=== PATIENT | female | born 1995 | race Caucasian/White ===

== ENCOUNTER 2017-09-09 21:45 | Emergency (ER) | payer MEDICAID ==
[2017-09-10] MEDS ORDERED: METOCLOPRAMIDE HCL 10 MG TABLET PO ONE (00:30)
[2017-09-10 00:48] VITALS: BP 122/86
[2017-09-10 00:55] LABS: APPEARANCE,URINE SLIGHTLY-CLOUDY; BILIRUBIN,URINE NEGATIVE (NEGATIVE); COLOR,URINE YELLOW; GLUCOSE, URINE NEGATIVE (NEGATIVE); KETONES,URINE NEGATIVE (NEGATIVE); LEUKOCYTE ESTERASE,URINE SMALL (NEGATIVE); NITRITE,URINE NEGATIVE (NEGATIVE); PROTEIN,URINE NEGATIVE (NEGATIVE)
[2017-09-10] MEDS ORDERED: ONDANSETRON ODT 4 MG TAB (6 TAB/ER DISP) PO PRN (01:23)
--- NOTE | 2017-09-10 01:31 | ER Document Report ---
ED GI/ - General Mode of Arrival: Ambulatory Information source: Patient TRAVEL OUTSIDE OF THE [place] IN LAST 30 DAYS: No <DOMINGO MONTOYA - Last Filed: 09/10/17 01:43> <THIERRY CHUNG - Last Filed: 09/10/17 02:45> - General Chief Complaint: OB Problem (<20wks) Stated Complaint: VOMITING Time Seen by Provider: 09/10/17 00:21 Notes: Patient is a "6 or 7 week " 21-year-old female who presents to the emergency department today with complaints of vomiting. Patient states nausea has been a problem throughout this . Patient also mentions that a kid of hers had the flu 2 weeks ago. (DOMINGO MONTOYA) - Related Data Allergies/Adverse Reactions: No Known Allergies Allergy (Verified 09/09/17 22:57) Past Medical History - General Information source: Patient Last Menstrual Period: 07/19/18 - Social History Smoking Status: Never Smoker Cigarette use (# per day): No Chew tobacco use (# tins/day): No Frequency of alcohol use: None Drug Abuse: None Lives with: Family Family History: Reviewed & Not Pertinent Patient has suicidal ideation: No Patient has homicidal ideation: No Pulmonary Medical History: Reports: Hx Bronchitis, Hx Pneumonia Renal/ Medical History: Reports: Hx Ovarian Cysts GI Medical History: Reports: Hx Gastroesophageal Reflux Disease Psychiatric Medical History: Reports: Hx Anxiety, Hx Depression Past Surgical History: Reports: Hx Cholecystectomy, Hx Oral Surgery, Hx Tonsillectomy - Immunizations Immunizations up to date: Yes Hx Diphtheria, Pertussis, Tetanus Vaccination: Yes <DOMINGO MONTOYA - Last Filed: 09/10/17 01:43> Review of Systems - Review of Systems Constitutional: No symptoms reported EENT: No symptoms reported Cardiovascular: No symptoms reported Respiratory: No symptoms reported Gastrointestinal: See HPI, Nausea, Vomiting Genitourinary: No symptoms reported Female Genitourinary: See HPI, Musculoskeletal: No symptoms reported Skin: No symptoms reported Hematologic/Lymphatic: No symptoms reported Neurological/Psychological: No symptoms reported -: Yes All other systems reviewed and negative <DOMINGO MONTOYA - Last Filed: 09/10/17 01:43> Physical Exam <DOMINGO MONTOYA - Last Filed: 09/10/17 01:43> <THIERRY CHUNG - Last Filed: 09/10/17 02:45> - Vital signs Vitals: Temp Pulse BP Pulse Ox 98.8 F 93 122/86 H 97 09/10/17 00:13 09/10/17 00:13 09/10/17 00:13 09/10/17 00:13 - Notes Notes: Physical Exam: General: Alert, appears well. HEENT: Normocephalic. Atraumatic. PERRL. Extraocular movements intact. Oropharynx clear. Dry mucous membranes. Neck: Supple. Non-tender. Respiratory: No respiratory distress. Clear and equal breath sounds bilaterally. Cardiovascular: Regular rate and rhythm. Abdominal: Mild suprapubic tenderness with palpation. No distension. Normal Bowel Sounds. Back: Non-tender. No deformity or step off. Extremities: Moves all four extremities. Upper extremities: Normal inspection. Normal ROM. Lower extremities: Normal inspection. No edema. Normal ROM. Neurological: Normal cognition. AAOx4. Normal speech. Psychological: Normal affect. Normal Mood. Skin: Warm. Dry. Normal color. (DOMINGO MONTOYA) Course <DOMINGO MONTOYA - Last Filed: 09/10/17 01:43> <THIERRY CHUNG - Last Filed: 09/10/17 02:45> - Re-evaluation Re-evalutation: 09/10/17 02:43 Patient is a 21-year-old female who comes in with vomiting today. Patient has been nauseated throughout this . States that she was told she was and at this point she should be 6-8 weeks along. Bedside ultrasound showing an intrauterine . Patient was given Reglan and is able to keep p.o. down without difficulty. No evidence for infection or ketones on urine. Patient is instructed to follow-up with her doctor or the health department. Return if any worsening or concerning symptoms. She has been given a prescription for Reglan. Understands and agrees with plan. (THIERRY CHUNG) - Vital Signs Vital signs: Temp Pulse Resp BP Pulse Ox 98.8 F 93 122/86 H 97 09/10/17 00:13 09/10/17 00:13 09/10/17 00:13 09/10/17 00:13 - Laboratory Laboratory results interpreted by me: 09/10/17 00:40 Urine Urobilinogen 2.0 H Ur Leukocyte Esterase SMALL H Procedures - Ultrasound/Bedside Ultrasound/Bedside Ultrasound: Other - IUP with HR ~140 at bedside <THIERRY CHUNG - Last Filed: 09/10/17 02:45> Discharge <DOMINGO MONTOYA - Last Filed: 09/10/17 01:43> <THIERRY CHUNG - Last Filed: 09/10/17 02:45> - Discharge Clinical Impression: Vomiting Qualifiers: Vomiting type: unspecified Vomiting Intractability: unspecified Nausea presence : with nausea Qualified Code(s): R11.2 - Nausea with vomiting, unspecified Qualifiers: Weeks of gestation: less than 8 weeks Qualified Code(s): Z3A.01 - Less than 8 weeks gestation of Condition: Stable Disposition: HOME, SELF-CARE Instructions: ([facility]), Vomiting ([facility]) Prescriptions: Metoclopramide HCl [Reglan 10 mg Tablet] 1 tab PO TIDP PRN #25 tablet PRN Reason: Scribe Attestation: 09/10/17 02:45 I personally performed the services described in the documentation, reviewed and edited the documentation which was dictated to the scribe in my presence, and it accurately records my words and actions. (THIERRY CHUNG) Scribe Documentation - Scribe Written by Scribe:: Gena Barry, 09/10/2017 0150 acting as scribe for :: Collette <DOMINGO MONTOYA - Last Filed: 09/10/17 01:43>
== END 2017-09-10 02:13 | disposition home or self-care (01) ==
LOC: ER 21:45
DX: O21.9 Vomiting of pregnancy, unspecified (principal); Z3A.01 Less than 8 weeks gestation of pregnancy; Z90.49 Acquired absence of other specified parts of digestive tract
CPT/HCPCS: 99283; 81001; J3490

== ENCOUNTER 2017-11-22 11:28 | Emergency (ER) | payer MEDICAID ==
--- NOTE | 2017-11-22 13:32 | ER Document Report ---
ED GI/ - General Chief Complaint: Urinary Frequency Stated Complaint: VAGINAL ITCHING, ABDOMINAL PAIN Time Seen by Provider: 11/22/17 12:49 Mode of Arrival: Ambulatory Notes: 22-year-old female presents to ED for complaint of frequent urination and itching to the vaginal area 1 week. She states she is 18 weeks . She states she has some pelvic pain but she has a left ovarian cyst. She denies any bleeding at this time. TRAVEL OUTSIDE OF THE [place] IN LAST 30 DAYS: No - HPI Patient complains to provider of: Pelvic pain, Other - Burning and itching to the vaginal area Onset: Last week Timing/Duration: Gradual Quality of pain: Burning Severity at maximum: Moderate Severity in ED: Moderate Pain Level: 2 Location: Vaginal, Vulvar Vaginal bleeding (Compared to normal period): None Associated symptoms: Urinary frequency, Urinary urgency, Other - Burning and itching to the vaginal area Exacerbated by: Other - Urination Relieved by: Denies Similar symptoms previously: Yes Recently seen / treated by doctor: No - Related Data Allergies/Adverse Reactions: No Known Allergies Allergy (Verified 11/22/17 11:29) Past Medical History - General Information source: Patient - Social History Smoking Status: Never Smoker Cigarette use (# per day): No Chew tobacco use (# tins/day): No Smoking Education Provided: No Frequency of alcohol use: None Drug Abuse: None Lives with: Family Family History: CAD, Hyperlipidemia, Hypertension, Malignancy, Thyroid Disfunction. denies: Arthritis, COPD, CVA, DM Patient has suicidal ideation: No Patient has homicidal ideation: No - Past Medical History Cardiac Medical History: Reports: None Pulmonary Medical History: Reports: Hx Bronchitis, Hx Pneumonia EENT Medical History: Reports: None Neurological Medical History: Reports: None Endocrine Medical History: Reports: None Renal/ Medical History: Reports: Hx Ovarian Cysts Malignancy Medical History: Reports: None GI Medical History: Reports: Hx Gastroesophageal Reflux Disease Musculoskeltal Medical History: Reports None Skin Medical History: Reports None Psychiatric Medical History: Reports: Hx Anxiety, Hx Depression Traumatic Medical History: Reports: None Past Surgical History: Reports: Hx Adenoidectomy, Hx Cholecystectomy, Hx Myringotomy, Hx Oral Surgery - Immunizations Immunizations up to date: Yes Hx Diphtheria, Pertussis, Tetanus Vaccination: Yes Review of Systems - Review of Systems Constitutional: No symptoms reported EENT: No symptoms reported Cardiovascular: No symptoms reported Respiratory: No symptoms reported Gastrointestinal: No symptoms reported Genitourinary: Burning, Frequency, Urgency Female Genitourinary: Other Musculoskeletal: No symptoms reported Skin: No symptoms reported Hematologic/Lymphatic: No symptoms reported Neurological/Psychological: No symptoms reported -: Yes All other systems reviewed and negative Physical Exam - Vital signs Vitals: Temp Pulse Resp BP Pulse Ox 98.0 F 91 16 122/79 99 11/22/17 11:38 11/22/17 11:38 11/22/17 11:38 11/22/17 11:38 11/22/17 11:38 Interpretation: Normal - General General appearance: Appears well, Alert - HEENT Head: Normocephalic, Atraumatic Eyes: Normal Pupils: PERRL - Respiratory Respiratory status: No respiratory distress Chest status: Nontender Breath sounds: Normal Chest palpation: Normal - Cardiovascular Rhythm: Regular Heart sounds: Normal auscultation Murmur: No - Abdominal Inspection: Normal Distension: No distension Bowel sounds: Normal Tenderness: Nontender Organomegaly: No organomegaly - Genitourinary External exam: Normal Speculum exam: Vaginal discharge - Patient self swab. She did not have any pelvic pain or any reason for a pelvic exam. She had just had a pelvic done a couple weeks ago at the health department - Back Back: Normal, Nontender - Extremities General upper extremity: Normal inspection, Nontender, Normal color, Normal ROM , Normal temperature General lower extremity: Normal inspection, Nontender, Normal color, Normal ROM , Normal temperature, Normal weight bearing. No: Cindy's sign - Neurological Neuro grossly intact: Yes Cognition: Normal Orientation: AAOx4 Leona Coma Scale Eye Opening: Spontaneous Ike Coma Scale Verbal: Oriented Leona Coma Scale Motor: Obeys Commands Leona Coma Scale Total: 15 Speech: Normal Motor strength normal: LUE, RUE, LLE, RLE Sensory: Normal - Psychological Associated symptoms: Normal affect, Normal mood - Skin Skin Temperature: Warm Skin Moisture: Dry Skin Color: Normal Course - Re-evaluation Re-evalutation: 11/22/17 17:00 This 22-year-old female presented ED for what she thought was a vaginal yeast infection. When testing was completed I agreed she had a vaginal yeast infection. I did run a culture on the urine because it did show leukocytes but it did not show any bacteria. Patient was instructed to use lotv-xbm-[id number] vaginal cream for her yeast infection. She was also instructed to follow-up with the [facility] as she is 18 weeks . Patient was able to verbalize understanding of instruction and verbalized agreement with treatment plan. - Vital Signs Vital signs: Temp Pulse Resp BP Pulse Ox 97.9 F 82 16 103/66 97 11/22/17 14:06 11/22/17 14:06 11/22/17 11:38 11/22/17 14:06 11/22/17 14:06 - Laboratory Laboratory results interpreted by me: 11/22/17 12:43 Ur Leukocyte Esterase LARGE H Discharge - Discharge Clinical Impression: Yeast vaginitis Condition: Stable Disposition: HOME, SELF-CARE Instructions: [place] Phys[place] [facility] [place] Instructions: VAGINAL YEAST INFECTION: You have evidence of a yeast infection -- called "jeanie." A vaginal yeast infection often causes itching and discharge. While not dangerous, it can be very unpleasant. A yeast infection often follows the use of powerful antibiotics. It is more likely to occur in diabetics. The treatment now is usually a single pill of Diflucan, but also an antifungal cream or suppository may be used for a few days. You do not need to avoid sexual intercourse. Recurrences are common. You can make a recurrence less likely by wearing cotton underwear and avoiding tight clothing. For mild recurrences, you can try usxu-bpy-jmpoaqj creams or suppositories that are made specifically for yeast. If the symptoms do not resolve, you should follow up for re-examination. Sometimes treatment of the sexual partner is necessary if infections are recurrent. Acetaminophen Acetaminophen may be taken for pain relief or fever control. It's much safer than aspirin, offering a wider range of "safe" dosages. It is safe during . Some brand names are Tylenol, Panadol, Datril, Anacin 3, Tempra, and Liquiprin. Acetaminophen can be repeated every four hours. The following are maximum recommended dosages: WEIGHT Dose Drops Elixir Chewable( 80mg) (LBS.) drprs=droppers tsp=teaspoon 6 40 mg .4 ml (1/2) 6-11 80 mg .8 ml (full) 1/2 tsp 1 tab 12-16 120 mg 1 1/2 drprs 3/4 tsp 1 1/2 tabs 17-23 160 mg 2 drprs 1 tsp 2 tabs 24-30 240 mg 3 drprs 1 1/2 tsp 3 tabs 30-35 320 mg 2 tsp 4 tabs 36-41 360 mg 2 1/4 tsp 4 1 /2 tabs 42-47 400 mg 2 1/2 tsp 5 tabs 48-53 480 mg 3 tsp 6 tabs 54-59 520 mg 3 1/4 tsp 6 1 /2 tabs 60-64 560 mg 3 1/2 tsp 7 tabs 65-70 600 mg 3 3/4 tsp 7 1 /2 tabs 71-76 640 mg 4 tsp 8 tabs 77-82 720 mg 4 1/2 tsp 9 tabs 83-88 800 mg 5 tsp 10 tabs >89 pounds or adults 650 mg to 900 mg Acetaminophen can be repeated every four hours. Maximum daily dose not to exceed 4000 mg. These maximum recommended dosages are slightly higher than the dosages written on the product container, but these dosages are very safe and well below the toxic dosage for acetaminophen. FOLLOW-UP CARE: If you have been referred to a physician for follow-up care, call the physician s office for an appointment as you were instructed or within the next two days. If you experience worsening or a significant change in your symptoms, notify the physician immediately or return to the Emergency Department at any time for re-evaluation. Referrals: [facility] [Provider Group] - Follow up as needed
[2017-11-22 13:43] LABS: EPITHELIALS (WET MOUNT) 3+ EPITHELIALS SEEN; T.VAGINALIS (WET MOUNT) NO TRICHOMONAS SEEN; WBCS (WET MOUNT) RARE WBCS SEEN; YEAST (WET MOUNT) BUDDING YEAST SEEN
[2017-11-22 13:45] LABS: APPEARANCE,URINE CLEAR; BILIRUBIN,URINE NEGATIVE (NEGATIVE); COLOR,URINE STRAW; GLUCOSE, URINE NEGATIVE (NEGATIVE); KETONES,URINE NEGATIVE (NEGATIVE); LEUKOCYTE ESTERASE,URINE LARGE (NEGATIVE); NITRITE,URINE NEGATIVE (NEGATIVE); PROTEIN,URINE NEGATIVE (NEGATIVE); URINE SPECIFIC GRAVITY 1.005; UROBILINOGEN,URINE NEGATIVE mg/dL (<2.0)
[2017-11-22 14:07] VITALS: BP 103/66
== END 2017-11-22 14:13 | disposition home or self-care (01) ==
LOC: ER 11:28
DX: B37.3 Candidiasis of vulva and vagina (principal); R35.0 Frequency of micturition; Z90.49 Acquired absence of other specified parts of digestive tract
CPT/HCPCS: 81001; 87086; 87210; 99283

== ENCOUNTER 2018-01-31 15:07 | Outpatient (CLI) | payer MEDICAID ==
[2018-01-31 15:54] LABS: APPEARANCE,URINE CLEAR; BILIRUBIN,URINE NEGATIVE (NEGATIVE); COLOR,URINE STRAW; GLUCOSE, URINE NEGATIVE (NEGATIVE); KETONES,URINE NEGATIVE (NEGATIVE); LEUKOCYTE ESTERASE,URINE NEGATIVE (NEGATIVE); NITRITE,URINE NEGATIVE (NEGATIVE); PROTEIN,URINE NEGATIVE (NEGATIVE); URINE SPECIFIC GRAVITY 1.006; UROBILINOGEN,URINE NEGATIVE mg/dL (<2.0)
[2018-01-31 16:06] LABS: URINE AMPHETAMINES SCREEN NEGATIVE; URINE BARBITURATES SCREEN NEGATIVE; URINE BENZODIAZEPINES SCREEN NEGATIVE; URINE COCAINE SCREEN NEGATIVE; URINE MARIJUANA (THC) SCREEN NEGATIVE; URINE METHADONE SCREEN NEGATIVE; URINE PHENCYCLIDINE SCREEN NEGATIVE
--- NOTE | 2018-01-31 17:06 | RADIOLOGY REPORT (SQ) ---
EXAM DESCRIPTION: U/S OB LIMITED COMPLETED DATE/TIME: 01/31/2018 4:55 pm REASON FOR STUDY: s/p fall COMPARISON: None. TECHNIQUE: Limited transabdominal grayscale ultrasound for evaluation of specific requested obstetri lulu parameters. LIMITATIONS: None. FINDINGS: CERVICAL LENGTH: 3.7 cm. Closed. WILY: 14.8 cm. FHR: 141 beats per minute. PRESENTATION: Transverse. PLACENTA: Posterior. OTHER: No other significant findings. IMPRESSION: LIMITED OBSTETRICAL ULTRASOUND WITH MEASURED PARAMETERS DELINEATED ABOVE. Trimester of : Third trimester - 28 weeks to delivery. TECHNICAL DOCUMENTATION: JOB ID: [id number] [employer] All Rights Reserved Reading location - IP/workstation name: [email or web address]
[2018-01-31 19:55] LABS: FETAL RBC COUNT 0
[2018-01-31 19:57] LABS: KB INTERPRETATION NEGATIVE (NEGATIVE)
== END 2018-01-31 17:24 | disposition home or self-care (01) ==
LOC: LC 15:07
PROVIDERS: ATTEND Student in an Organized Health Care Education/Training Program
PROC: 4A1HXCZ Monitoring of Products of Conception, Cardiac Rate, External Approach (ICD-10-PCS; principal; 2018-01-31)
DX: O26.893 Other specified pregnancy related conditions, third trimester (principal); R10.9 Unspecified abdominal pain; W19.XXXA Unspecified fall, initial encounter; Z3A.28 28 weeks gestation of pregnancy
CPT/HCPCS: 36415; 76815; 80307; 81001; 85460; 86900; 86901

== ENCOUNTER 2020-03-11 18:41 | Emergency (ER) | payer MEDICAID ==
--- NOTE | 2020-03-11 19:54 | ER Document Report ---
ED General - General Chief Complaint: Cough Stated Complaint: COUGH,CONGESTION,SHORT OF BREATH Time Seen by Provider: 03/11/20 19:35 TRAVEL OUTSIDE OF THE [place] IN LAST 30 DAYS: No - HPI Notes: Patient is a 24-year-old female who presents to the emergency department for evaluation after 3 days of cough and intermittent shortness of breath. She states her cough is intermittently productive. It has a metallic taste to it. She denies any fevers or chills. No nausea or vomiting. No anosmia. She is eating and drinking normally. Normal bowel movements, no diarrhea. She denies any sore throat or ear pain. She denies any pain of any sort. She denies any known exposures to COVID-19 patients. She has not traveled out of the area. - Related Data Allergies/Adverse Reactions: No Known Allergies Allergy (Verified 01/31/18 15:26) Home Medications: Cymbalta, Abilify, Prilosec Past Medical History - General Information source: Patient - Social History Smoking Status: Never Smoker Frequency of alcohol use: Social Family History: CAD, Hyperlipidemia, Hypertension, Malignancy, Thyroid Disfunction. denies: Arthritis, COPD, CVA, DM Patient has homicidal ideation: No Pulmonary Medical History: Reports: Hx Bronchitis, Hx Pneumonia Renal/ Medical History: Reports: Hx Ovarian Cysts. Denies: Hx Peritoneal Dialysis GI Medical History: Reports: Hx Gastroesophageal Reflux Disease Psychiatric Medical History: Reports: Hx Anxiety, Hx Depression Past Surgical History: Reports: Hx Adenoidectomy, Hx Cholecystectomy, Hx Myringotomy, Hx Oral Surgery, Hx Tonsillectomy - Immunizations Immunizations up to date: Yes Hx Diphtheria, Pertussis, Tetanus Vaccination: Yes Review of Systems - Review of Systems Respiratory: See HPI -: Yes All other systems reviewed and negative Physical Exam - Vital signs Vitals: Temp Pulse Resp BP Pulse Ox 98.9 F 84 16 125/83 100 03/11/20 19:07 03/11/20 19:07 03/11/20 19:07 03/11/20 19:07 03/11/20 19:07 - Notes Notes: Vital signs reviewed, please refer to chart. Head is normocephalic, atraumatic. Pupils equal round, reactive to light. Oral mucosa is moist. Pharynx is without erythema or exudate. Neck is supple without meningismus. Heart is regular rate and rhythm. Lungs are clear to auscultation bilaterally. Abdomen is soft, nontender, normoactive bowel sounds throughout. Extremities without cyanosis, clubbing. Posterior calves are nontender. Peripheral pulses are equal. Skin is warm and dry. Patient is awake, alert, neurological exam is nonfocal. Course - Re-evaluation Re-evalutation: 03/11/20 19:53 Patient presents to the emergency department for evaluation of a cough and intermittent shortness of breath. She has no risk factors for pulmonary emboli. She has no personal history of cancer, no personal history of blood clots. She has no family history of blood clots to her knowledge. She is a non-smoker, has not suffered any prolonged immobilization. She is oxygenating 100% on room air. Chest x-ray and COVID-19 test are ordered. She will be treated as a PGY, as instructed on appropriate isolation given this information. Otherwise I expect her chest x-ray she will be largely unremarkable. She is to follow-up with primary care. She will be contacted if her COVID test is positive. She is to r eturn to the ED with worsening or new concerning symptoms of any sort. 03/11/20 20:15 The patient was evaluated during the global COVID-19 pandemic and that diagnosis was suspected/considered upon their initial presentation. Their evaluation, treatment, and testing was consistent with current guidelines for patients who present with complaints or symptoms that may be related to COVID-19. - Vital Signs Vital signs: Temp Pulse Resp BP Pulse Ox 98.0 F 79 16 129/82 H 99 03/11/20 21:57 03/11/20 21:57 03/11/20 21:57 03/11/20 21:57 03/11/20 21:57 - Diagnostic Test Radiology reviewed: Image reviewed, Reports reviewed Radiology results interpreted by me: 03/11/20 22:17 Chest X-Ray 03/11/20 19:51 IMPRESSION: No acute findings. No focal lung consolidation. Discharge - Discharge Clinical Impression: Cough, Person under investigation for COVID-19 Upper respiratory infection Qualifiers: URI type: unspecified viral URI Qualified Code(s): J06.9 - Acute upper respiratory infection, unspecified Condition: Stable Disposition: HOME, SELF-CARE Instructions: COVID-19 Guidance for Persons Under Investigation, Upper Respiratory Illness ([facility]) Additional Instructions: Rest. Stay well-hydrated. Consider rxqs-lmi-gwwnolt symptomatic medications to help with your cough, such as Robitussin, a cough suppressant. Follow-up with your primary care provider. You have been tested for COVID-19. Please self isolate, as should everyone else in your household, until results are known. If you develop worsening or new concerning symptoms of any sort, please return immediately to the emergency department for evaluation.
--- NOTE | 2020-03-11 20:17 | RADIOLOGY REPORT (SQ) ---
EXAM DESCRIPTION: XR CHEST 1 VIEW COMPLETED DATE/TME: 03/11/2020 19:51 CLINICAL HISTORY: 24 years, Female, cough, dyspnea Comparison: None FINDINGS: No focal lung consolidation. No pleural effusion. No pneumothorax. Cardiac and mediastinal silhouette is unremarkable. No acute osseous abnormality. Soft tissues are unremarkable. IMPRESSION: No acute findings. No focal lung consolidation.
[2020-03-11 21:59] VITALS: BP 129/82
== END 2020-03-11 21:59 | disposition home or self-care (01) ==
LOC: ER 18:41
DX: J06.9 Acute upper respiratory infection, unspecified (principal); B97.89 Other viral agents as the cause of diseases classified elsewhere; R05 Cough; R06.02 Shortness of breath; Z79.899 Other long term (current) drug therapy; Z20.828 Contact with and (suspected) exposure to other viral communicable diseases; Z87.01 Personal history of pneumonia (recurrent)
CPT/HCPCS: 99283; 87635; 71045; C9803

== ENCOUNTER 2020-05-23 19:15 | Emergency (ER) | payer MEDICAID ==
--- NOTE | 2020-05-23 20:22 | ER Document Report ---
ED Medical Screen (RME) - General Stated Complaint: LOWER ABDOMINAL PAIN Time Seen by Provider: 05/23/20 20:18 TRAVEL OUTSIDE OF THE [place] IN LAST 30 DAYS: No - HPI Notes: 05/23/20 20:21 24-year-old female to the emergency department with complaints of left-sided pelvic pain that began today. She admits to associated diarrhea. Missed a slight nausea but denies any vomiting. She states she took a test at home and she thought it was possibly faintly positive. Her last menstrual period was April 23. She states that she is very regular and she has not come on to her period today. Also reports history of ovarian cysts. I performed a brief medical screening exam on the patient determined that the patient needs further evaluation and management by main side provider. I have placed initial orders to help expedite care. - Related Data Allergies/Adverse Reactions: No Known Allergies Allergy (Verified 05/23/20 20:16) Past Medical History Pulmonary Medical History: Reports: Hx Bronchitis, Hx Pneumonia Renal/ Medical History: Reports: Hx Ovarian Cysts. Denies: Hx Peritoneal Dialysis GI Medical History: Reports: Hx Gastroesophageal Reflux Disease Psychiatric Medical History: Reports: Hx Anxiety, Hx Depression Past Surgical History: Reports: Hx Adenoidectomy, Hx Cholecystectomy, Hx Myringotomy, Hx Oral Surgery, Hx Tonsillectomy - Immunizations Immunizations up to date: Yes Hx Diphtheria, Pertussis, Tetanus Vaccination: Yes Physical Exam - Vital signs Vitals: Temp Pulse Resp BP Pulse Ox 98.8 F 101 H 16 129/88 H 96 05/23/20 19:20 05/23/20 19:20 05/23/20 19:20 05/23/20 19:20 05/23/20 19:20 Course - Vital Signs Vital signs: Temp Pulse Resp BP Pulse Ox 98.8 F 101 H 16 129/88 H 96 05/23/20 19:20 05/23/20 19:20 05/23/20 19:20 05/23/20 19:20 05/23/20 19:20
[2020-05-23 20:53] LABS: ABSOLUTE EOSINOPHILS # (AUTO) 0.1 10^3/uL (0.0-0.6); ABSOLUTE LYMPHOCYTES (AUTO) 2.1 10^3/uL (0.5-4.7); ABSOLUTE MONOCYTES (AUTO) 0.6 10^3/uL (0.1-1.4); ABSOLUTE NEUT (AUTO) 5.9 10^3/uL (1.7-8.2); BASOPHILS % (AUTO) 0.3 % (0-2); EOSINOPHILS % (AUTO) 0.6 % (0-6); HEMATOCRIT 40.1 % (36.0-47.0); LYMPHOCYTES % (AUTO) 24.2 % (13-45); MEAN CORPUSCULAR HEMOGLOBIN 29.9 pg (27.0-33.4); MEAN CORPUSCULAR VOLUME 86 fl (80-97); MONOCYTES % (AUTO) 6.5 % (3-13); PLATELET COUNT 410 10^3/uL (150-450); RED BLOOD COUNT 4.69 10^6/uL (3.72-5.28); RED CELL DISTRIBUTION WIDTH 13.5 % (11.5-14.0); SEGMENTED NEUTROPHILS % (AUTO) 68.4 % (42-78); TOTAL CELLS COUNTED % (AUTO) 100 %; WHITE BLOOD COUNT 8.6 10^3/uL (4.0-10.5)
[2020-05-23 21:09] LABS: APPEARANCE,URINE CLEAR; BILIRUBIN,URINE NEGATIVE (NEGATIVE); COLOR,URINE YELLOW; GLUCOSE, URINE NEGATIVE (NEGATIVE); KETONES,URINE NEGATIVE (NEGATIVE); PROTEIN,URINE NEGATIVE (NEGATIVE); URINE SPECIFIC GRAVITY 1.009; UROBILINOGEN,URINE NEGATIVE mg/dL (<2.0)
[2020-05-23 21:12] LABS: ALBUMIN 4.5 g/dL (3.5-5.0); ALKALINE PHOSPHATASE 142 U/L (38-126); ANION GAP 8 (5-19); ASPARTATE AMINO TRANSFERASE 23 U/L (14-36); BILIRUBIN,DIRECT 0.3 mg/dL (0.0-0.4); BILIRUBIN,TOTAL 0.6 mg/dL (0.2-1.3); BLOOD UREA NITROGEN 7 mg/dL (7-20); CALCIUM 9.6 mg/dL (8.4-10.2); CARBON DIOXIDE 26 mmol/L (22-30); CHLORIDE 104 mmol/L (98-107); GLUCOSE 75 mg/dL (75-110); POTASSIUM 4.4 mmol/L (3.6-5.0); TOTAL PROTEIN 7.3 g/dL (6.3-8.2)
--- NOTE | 2020-05-23 22:59 | ER Document Report ---
ED General - General Chief Complaint: Abdominal Pain Stated Complaint: LOWER ABDOMINAL PAIN Time Seen by Provider: 05/23/20 20:18 Mode of Arrival: Ambulatory Information source: Patient Notes: 24-year-old female comes in today with mild left pelvic pain. She reports a possible faintly positive test at home. She not been having any fevers or chills. No vaginal discharge. No dysuria. No nausea or vomiting. Has a history of ovarian cyst in the past. At the time that I am seeing the patient, she has had full laboratory work-up. She has not had any imaging. TRAVEL OUTSIDE OF THE [place] IN LAST 30 DAYS: No - Related Data Allergies/Adverse Reactions: No Known Allergies Allergy (Verified 05/23/20 20:16) Home Medications: ABILIFY. CYMBALA. PRILOSEC Past Medical History - Social History Smoking Status: Former Smoker Frequency of alcohol use: None Drug Abuse: None Family History: CAD, Hyperlipidemia, Hypertension, Malignancy, Thyroid Disfunction. denies: Arthritis, COPD, CVA, DM Pulmonary Medical History: Reports: Hx Bronchitis, Hx Pneumonia Renal/ Medical History: Reports: Hx Ovarian Cysts. Denies: Hx Peritoneal Dialysis GI Medical History: Reports: Hx Gastroesophageal Reflux Disease Psychiatric Medical History: Reports: Hx Anxiety, Hx Depression Past Surgical History: Reports: Hx Adenoidectomy, Hx Cholecystectomy, Hx Myringotomy, Hx Oral Surgery, Hx Tonsillectomy - Immunizations Immunizations up to date: Yes Hx Diphtheria, Pertussis, Tetanus Vaccination: Yes Review of Systems - Review of Systems Notes: Constitutional: No fevers. No chills. EENT: No eye redness. No eye pain. No ear pain. No sore throat. Cardiovascular: No chest pain. No palpitations. Respiratory: No cough. No shortness of breath. No respiratory distress. Gastrointestinal: Positive left pelvic pain Genitourinary: Atraumatic. No lesions. No pain. No discharge. Musculoskeletal: Atraumatic. No swelling. No deformities. Skin: No rash or lesions. Lymphatic: No swollen lymph nodes. Neurologic: No headache. No syncope. Psychiatric: No suicidal or homicidal ideation. Physical Exam - Vital signs Vitals: Temp Pulse Resp BP Pulse Ox 98.8 F 101 H 16 129/88 H 96 05/23/20 19:20 05/23/20 19:20 05/23/20 19:20 05/23/20 19:20 05/23/20 19:20 - Notes Notes: General: Well-developed, well-nourished. In no acute distress. Non-toxic appearing. Cardiac: Well-perfused. Regular rate and rhythm. No murmurs, rubs, or gallops. Pulmonary: No respiratory distress. No cyanosis. Bilateral lung fiels are clear to auscultation. Abdominal: Left pelvic tenderness to deep palpation. No guarding or rebound. Bowel sounds present all 4 quadrants HEENT: Head is atraumatic. Conjunctivae not reddened. No tearing. PERRL. EOMI. Orbits atraumatic. No periorbital swelling or erythema. Oropharynx is without erythema, swelling, or exudates. Neck: Supple. No adenopathy. No meningismus. Dermatologic: Warm with good turgor. No rash. Atraumatic. Chest: Atraumatic. No chest wall tenderness to palpation. Musculoskeletal: Moves all extremities well. No range of motion deficits. no muscular or joint tenderness. No paraspinal muscle tenderness. no midline spinal tenderness or step-off. Genitourinary: Examination deferred Neurologic: No gross neurologic deficits. Psychiatric: Normal mood. Course - Re-evaluation Re-evalutation: 05/23/20 22:57 Patient has completely normal laboratory studies including normal urine. test was negative. Offered the patient a pelvic ultrasound to see if she is possibly got an ovarian cyst. She declines waiting any further here in the emergency room for further imaging. I told her to take Motrin or Tylenol as needed for the pain that she is experiencing. She appears relieved to know that the labs are normal and that the test was negative and is comfortable with the plan of going home and treating symptomatically. We will have her follow-up with AIRPLANE PILOT SUPERVISOR as needed. - Vital Signs Vital signs: Temp Pulse Resp BP Pulse Ox 98.8 F 101 H 16 129/88 H 96 05/23/20 19:20 05/23/20 19:20 05/23/20 19:20 05/23/20 19:20 05/23/20 19:20 - Laboratory Result Diagrams: 05/23/20 20:35 05/23/20 20:35 Laboratory results interpreted by me: 05/23/20 20:35 Alkaline Phosphatase 142 H Discharge - Discharge Clinical Impression: Pelvic pain, Elevated blood pressure reading Condition: Good Disposition: HOME, SELF-CARE Instructions: Pelvic Pain ([facility]) Additional Instructions: If this pain persists or get worse you can always return to the emergency department. Recommend following up with gynecology if it persists. Forms: Elevated Blood Pressure Referrals: SHAINA GOODRICH MD [ACTIVE STAFF] - Follow up as needed
[2020-05-23 23:06] VITALS: BP 139/93
== END 2020-05-23 23:00 | disposition home or self-care (01) ==
LOC: ER 19:15
DX: R10.2 Pelvic and perineal pain (principal); R03.0 Elevated blood-pressure reading, without diagnosis of hypertension; K21.9 Gastro-esophageal reflux disease without esophagitis; F41.9 Anxiety disorder, unspecified; F32.9 Major depressive disorder, single episode, unspecified; Z79.899 Other long term (current) drug therapy; Z87.42 Personal history of other diseases of the female genital tract; Z90.49 Acquired absence of other specified parts of digestive tract; Z87.891 Personal history of nicotine dependence
CPT/HCPCS: 36415; 80053; 81001; 84703; 85025; 99282

== ENCOUNTER 2020-05-30 16:59 | Emergency (ER) | payer MEDICAID ==
--- NOTE | 2020-05-30 18:15 | ER Document Report ---
ED Medical Screen (RME) - General Chief Complaint: Lower Abdominal Pain Stated Complaint: LOW ABDOMINAL PAIN Time Seen by Provider: 05/30/20 18:08 Mode of Arrival: Ambulatory Information source: Patient Notes: 24-year-old female patient presenting to the emergency department with 1 week history of left lower quadrant abdominal/pelvic pain. Patient reports she has a Nexplanon. She reports she has had 3 home test that have a very faint positive line. She is concerned that she may be . She states she was here last week, states she had to leave prior to work-up being completed. Mild tenderness to the left lower quadrant. Patient was tachycardic on arrival, I put her on the pulse ox and her heart rate was having a wide range from the 130s down to the 90s. I am ordering an EKG for this. Patient does report a history of anxiety but denies feeling anxious now. I have greeted and performed a rapid initial assessment of this patient. A comprehensive ED assessment and evaluation of the patient, analysis of test results and completion of the medical decision making process will be conducted by additional ED providers. I have specifically instructed the patient or family members with the patient to immediately return to any nursing staff should anything change in the patient's condition or with their chief complaint. TRAVEL OUTSIDE OF THE [place] IN LAST 30 DAYS: No - Related Data Allergies/Adverse Reactions: No Known Allergies Allergy (Verified 05/23/20 20:16) Past Medical History Pulmonary Medical History: Reports: Hx Bronchitis, Hx Pneumonia Renal/ Medical History: Reports: Hx Ovarian Cysts. Denies: Hx Peritoneal Dialysis GI Medical History: Reports: Hx Gastroesophageal Reflux Disease Psychiatric Medical History: Reports: Hx Anxiety, Hx Depression Past Surgical History: Reports: Hx Adenoidectomy, Hx Cholecystectomy, Hx Myringotomy, Hx Oral Surgery, Hx Tonsillectomy - Immunizations Immunizations up to date: Yes Hx Diphtheria, Pertussis, Tetanus Vaccination: Yes Physical Exam - Vital signs Vitals: Temp Pulse Resp BP Pulse Ox 98.1 F 108 H 16 132/81 H 98 05/30/20 17:20 05/30/20 17:20 05/30/20 17:20 05/30/20 17:20 05/30/20 17:20 Course - Vital Signs Vital signs: Temp Pulse Resp BP Pulse Ox 98.1 F 108 H 16 132/81 H 98 05/30/20 17:20 05/30/20 17:20 05/30/20 17:20 05/30/20 17:20 05/30/20 17:20
[2020-05-30 18:53] LABS: ABSOLUTE EOSINOPHILS # (AUTO) 0.1 10^3/uL (0.0-0.6); ABSOLUTE LYMPHOCYTES (AUTO) 2.1 10^3/uL (0.5-4.7); ABSOLUTE MONOCYTES (AUTO) 0.8 10^3/uL (0.1-1.4); ABSOLUTE NEUT (AUTO) 6.4 10^3/uL (1.7-8.2); BASOPHILS % (AUTO) 0.3 % (0-2); EOSINOPHILS % (AUTO) 0.9 % (0-6); HEMATOCRIT 39.8 % (36.0-47.0); HEMOGLOBIN 13.7 g/dL (12.0-15.5); LYMPHOCYTES % (AUTO) 22.8 % (13-45); MEAN CORPUSCULAR HEMOGLOBIN 29.5 pg (27.0-33.4); MEAN CORPUSCULAR HGB CONC 34.3 g/dL (32.0-36.0); MEAN CORPUSCULAR VOLUME 86 fl (80-97); MONOCYTES % (AUTO) 8.3 % (3-13); PLATELET COUNT 412 10^3/uL (150-450); RED BLOOD COUNT 4.64 10^6/uL (3.72-5.28); RED CELL DISTRIBUTION WIDTH 13.5 % (11.5-14.0); SEGMENTED NEUTROPHILS % (AUTO) 67.7 % (42-78); TOTAL CELLS COUNTED % (AUTO) 100 %; WHITE BLOOD COUNT 9.4 10^3/uL (4.0-10.5)
[2020-05-30 19:11] LABS: ALBUMIN 4.5 g/dL (3.5-5.0); ALKALINE PHOSPHATASE 115 U/L (38-126); ANION GAP 10 (5-19); ASPARTATE AMINO TRANSFERASE 20 U/L (14-36); BILIRUBIN,DIRECT 0.2 mg/dL (0.0-0.4); BILIRUBIN,TOTAL 0.5 mg/dL (0.2-1.3); BLOOD UREA NITROGEN 10 mg/dL (7-20); CALCIUM 9.7 mg/dL (8.4-10.2); CARBON DIOXIDE 26 mmol/L (22-30); CHLORIDE 102 mmol/L (98-107); GLUCOSE 79 mg/dL (75-110); POTASSIUM 4.7 mmol/L (3.6-5.0); TOTAL PROTEIN 7.3 g/dL (6.3-8.2)
--- NOTE | 2020-05-30 19:56 | RADIOLOGY REPORT (SQ) ---
EXAM DESCRIPTION: U/S NON OB PEL TV W/DOPPLER IMAGES COMPLETED DATE/TIME: 05/30/2020 7:45 pm REASON FOR STUDY: L pelvic pain LMP 04/23/2020 COMPARISON: None. TECHNIQUE: Dynamic and static grayscale images acquired of the pelvis via transvaginal approach and recorded on PACS. Additional selected color Doppler and spectral images recorded. LIMITATIONS: None. FINDINGS: UTERUS: Contour normal. No mass. ENDOMETRIAL STRIPE: No focal or generalized thickening. No masses. CERVIX: 2.5 cm. No nabothian cysts. RIGHT OVARY AND DOPPLER: Normal size. No worrisome masses. Normal arterial vascular flow without evid ence for torsion. 24 mm cyst. LEFT OVARY AND DOPPLER: Normal size. No worrisome masses. Normal arterial vascular flow without evide nce for torsion. FREE FLUID: None noted. OTHER: No other significant finding. MEASUREMENTS: UTERUS: 8.7 x 5.9 x 4.8 cm. ENDOMETRIAL STRIPE: 12 mm. RIGHT OVARY: 3 x 2.8 x 2.2 cm. LEFT OVARY: 2.6 x 1.4 x 1.6 cm. IMPRESSION: Normal study. There is a 24 mm right ovarian cyst that is almost certainly benign. No additional imaging is required for this. TECHNICAL DOCUMENTATION: JOB ID: [id number] 2010 [employer]- All Rights Reserved Rev-12/24 Reading location - IP/workstation name: [email or web address]
--- NOTE | 2020-05-30 20:43 | ER Document Report ---
ED GI/ - General Chief Complaint: Abdominal Pain Stated Complaint: LOW ABDOMINAL PAIN Time Seen by Provider: 05/30/20 18:08 Mode of Arrival: Ambulatory Notes: CHIEF COMPLAINT: Left pelvic pain for 1 week HPI: 24-year-old female presenting with left pelvic pain for 1 week has been fairly constant hurts when she lays on the left side. Denies dysuria fever nausea vomiting. Denies vaginal bleeding or spotting or discharge ROS: See HPI - all other systems were reviewed and are otherwise negative Constitutional: no fever or recent illness Eyes: no drainage, no blurred vision ENT: no runny nose, no sore throat Cardiovascular: no chest pain Resp: no SOB, no cough GI: no vomiting, no diarrhea, positive pelvic pain : no dysuria, no vaginal discharge Integumentary: no rash Allergy: no hives Musculoskeletal: no extremity pain or swelling Neurological: no numbness/tingling, no weakness MEDICATIONS: I agree with the patient medications as charted by the RN. ALLERGIES: I agree with the allergies as charted by the RN. PAST MEDICAL HISTORY/PAST SURGICAL HISTORY: Reviewed and agree as charted by RN. SOCIAL HISTORY: Reviewed and agree as charted by RN. FAMILY HISTORY: No significant familial comorbid conditions directly related to patient complaint EXAM: Reviewed vital signs as charted by RN. CONSTITUTIONAL: Alert and oriented and responds appropriately to questions. Well-appearing; well-nourished HEAD: Normocephalic; atraumatic EYES: PERRL; Conjunctivae clear, sclerae non-icteric ENT: normal nose; no rhinorrhea; moist mucous membranes; pharynx without lesions noted NECK: Supple without meningismus; non-tender; no cervical lymphadenopathy, no masses CARD: RRR; no murmurs, no clicks, no rubs, no gallops; symmetric distal pulses RESP: Normal chest excursion without splinting or tachypnea; breath sounds clear and equal bilaterally; no wheezes, no rhonchi, no rales ABD/GI: Normal bowel sounds; non-distended; soft, mild tenderness left pelvis on palpation, no rebound, no guarding; no palpable organomegaly or masses : Female nurse personal service representative present. External genitalia normal. No skin lesions noted. Pelvic Exam: No active bleeding. Small amount of a thin white discharge, cervix appears normal. No CMT. No lesions or masses. Uterus normal size and non tender. Right/Left adnexa normal size and mildly tender on the left. BACK: The back appears normal and is non-tender to palpation, there is no CVA tenderness EXT: Normal ROM in all joints; non-tender to palpation; no cyanosis, no ef fusions, no edema SKIN: Normal color for age and race; warm; dry; good turgor; no acute lesions n oted NEURO: Moves all extremities equally; Motor and sensory function intact PSYCH: The patient's mood and manner are appropriate. Grooming and personal hygiene are appropriate. MDM: EKG shows a sinus tachycardia with a heart rate of 103. [place] 148. QT 352. QTc 461. Possible borderline T wave flattening in the lateral leads. No other abnormalities. Abnormal EKG interpreted by emergency department physician 24-year-old female with left pelvic pain for a week. Noted to have a 2 cm right ovarian cyst. Urine does not show evidence of infection. Low suspicion for PID. Apparently she had a variable heart rate in triage prompting the EKG ordered. She does not have chest pain or shortness of breath. TRAVEL OUTSIDE OF THE [place] IN LAST 30 DAYS: No - Related Data Allergies/Adverse Reactions: No Known Allergies Allergy (Verified 05/23/20 20:16) Home Medications: prilosec, cymbalta, abilify Past Medical History - General Information source: Patient - Social History Smoking Status: Current Every Day Smoker Frequency of alcohol use: Occasional Drug Abuse: None Family History: CAD, Hyperlipidemia, Hypertension, Malignancy, Thyroid Disfunction. denies: Arthritis, COPD, CVA, DM Pulmonary Medical History: Reports: Hx Bronchitis, Hx Pneumonia Renal/ Medical History: Reports: Hx Ovarian Cysts. Denies: Hx Peritoneal Dialysis GI Medical History: Reports: Hx Gastroesophageal Reflux Disease Psychiatric Medical History: Reports: Hx Anxiety, Hx Depression Past Surgical History: Reports: Hx Adenoidectomy, Hx Cholecystectomy, Hx Myringotomy, Hx Oral Surgery, Hx Tonsillectomy - Immunizations Immunizations up to date: Yes Hx Diphtheria, Pertussis, Tetanus Vaccination: Yes Physical Exam - Vital signs Vitals: Temp Pulse Resp BP Pulse Ox 98.1 F 108 H 16 132/81 H 98 05/30/20 17:20 05/30/20 17:20 05/30/20 17:20 05/30/20 17:20 05/30/20 17:20 Course - Re-evaluation Re-evalutation: 05/30/20 21:21 Ultrasound shows a 2 cm right ovarian cyst. Patient's pain is more on the left. She does have vaginitis. Will place her on anti-inflammatories, Flagyl, HOUSE CALLS NURSE referral - Vital Signs Vital signs: Temp Pulse Resp BP Pulse Ox 98.1 F 108 H 16 132/81 H 98 05/30/20 17:20 05/30/20 17:20 05/30/20 17:20 05/30/20 17:20 05/30/20 17:20 - Laboratory Result Diagrams: 05/30/20 18:23 05/30/20 18:23 Discharge - Discharge Clinical Impression: Ovarian cyst, right, Bacterial vaginitis Condition: Stable Disposition: HOME, SELF-CARE Additional Instructions: It was noted on your imaging study to do that you do have a right ovarian cyst. Take naproxen to treat the discomfort for this. It was also noted that you have bacterial vaginitis which is a vaginal infection that needs treatment with antibiotics. Take the Flagyl to treat this. No sexual intercourse for 1 week. Follow-up with IT SYSTEMS ANALYST CONSULTANT for further evaluation and treatment call for appointment Prescriptions: Metronidazole [Flagyl 500 mg Tablet] 500 mg PO BID #14 tablet Naproxen 500 mg PO BID PRN #14 tablet PRN Reason: Referrals: SHAINA GOODRICH MD [ACTIVE STAFF] - Follow up as needed
[2020-05-30 21:05] LABS: APPEARANCE,URINE SLIGHTLY-CLOUDY; BILIRUBIN,URINE NEGATIVE (NEGATIVE); COLOR,URINE YELLOW; GLUCOSE, URINE NEGATIVE (NEGATIVE); KETONES,URINE NEGATIVE (NEGATIVE); LEUKOCYTE ESTERASE,URINE NEGATIVE (NEGATIVE); NITRITE,URINE NEGATIVE (NEGATIVE); PROTEIN,URINE NEGATIVE (NEGATIVE); URINE SPECIFIC GRAVITY 1.023; UROBILINOGEN,URINE NEGATIVE mg/dL (<2.0)
[2020-05-30 21:15] LABS: BACTERIA (WET MOUNT) 4+ BACTERIA SEEN; EPITHELIALS (WET MOUNT) 3+ EPITHELIALS SEEN; RBCS (WET MOUNT) RARE RBCS SEEN; T.VAGINALIS (WET MOUNT) NO TRICHOMONAS SEEN; WBCS (WET MOUNT) 1+ WBCS SEEN; YEAST (WET MOUNT) NO YEAST SEEN
[2020-05-30] MEDS ORDERED: METRONIDAZOLE 500 MG TABLET PO ONE (21:23)
[2020-05-30] MEDS ORDERED: NAPROXEN 250 MG TABLET PO ONE (21:23)
[2020-05-30 21:57] VITALS: BP 130/86
[2020-05-30 22:40] LABS: CHLAM PCR NOT DETECTED (NOT DETECT)
--- NOTE | 2020-05-31 16:15 | EKG REPORT ---
SEVERITY:- ABNORMAL ECG - SINUS TACHYCARDIA PROBABLE LEFT ATRIAL ABNORMALITY BORDERLINE LEFT AXIS DEVIATION BORDERLINE T ABNORMALITIES, ANTERIOR LEADS : Confirmed by: Neville Serna MD 31-May-2020 16:14:40
== END 2020-05-30 22:27 | disposition home or self-care (01) ==
LOC: ER 16:59
DX: N76.0 Acute vaginitis (principal); B96.89 Other specified bacterial agents as the cause of diseases classified elsewhere; N83.201 Unspecified ovarian cyst, right side; R10.2 Pelvic and perineal pain; F17.200 Nicotine dependence, unspecified, uncomplicated; K21.9 Gastro-esophageal reflux disease without esophagitis; F32.9 Major depressive disorder, single episode, unspecified; F41.9 Anxiety disorder, unspecified; Z79.899 Other long term (current) drug therapy
CPT/HCPCS: 99285; 36415; 87210; 83690; 84443; 84703; 85025; 80053; 81001; 87491; 87591; 76830; 93976; 93005; 93010; J3490 ×2

== ENCOUNTER 2020-07-17 20:24 | Emergency (ER) | payer MEDICAID ==
[2020-07-17 20:38] VITALS: BP 135/93
--- NOTE | 2020-07-17 20:42 | ER Document Report ---
ED Skin Rash/Insect Bite/Abscs - General Stated Complaint: RASH ON SKIN Time Seen by Provider: 07/17/20 20:33 Notes: CHIEF COMPLAINT: Rash on left leg for 1 day HPI: 24-year-old female presenting for evaluation of a single raised red spot on the lateral left thigh for 1 day. She brought her child in tonight for questionable fungal rash so wanted this area evaluated. Complains of itching to the site. Has used no medications on this ROS: See HPI - all other systems were reviewed and are otherwise negative Constitutional: no fever Integumentary: + rash Allergy: no hives Musculoskeletal: no extremity pain or swelling Neurological: no numbness/tingling, no weakness MEDICATIONS: I agree with the patient medications as charted by the RN. ALLERGIES: I agree with the allergies as charted by the RN. PAST MEDICAL HISTORY/PAST SURGICAL HISTORY: Reviewed and agree as charted by RN. SOCIAL HISTORY: Reviewed and agree as charted by RN. FAMILY HISTORY: No significant familial comorbid conditions directly related to patient complaint EXAM: Reviewed vital signs as charted by RN. CONSTITUTIONAL: Alert and oriented and responds appropriately to questions. Well-appearing; well-nourished HEAD: Normocephalic; atraumatic EYES: Conjunctivae clear, sclerae non-icteric ENT: normal nose; no rhinorrhea; moist mucous membranes NECK: Supple without meningismus; non-tender; no cervical lymphadenopathy, no masses CARD: RRR; no murmurs, no clicks, no rubs, no gallops; symmetric distal pulses RESP: Normal chest excursion without splinting or tachypnea ABD/GI: non-distended BACK: The back appears normal EXT: Normal ROM in all joints; non-tender to palpation; no cyanosis, no effusions, no edema SKIN: Normal color for age and race; warm; dry; good turgor; there is a single 5 mm raised erythematous area on the lateral aspect of the left thigh distally. It does shannon with pressure. No petechia purpura or vesicles. No induration or fluctuant areas NEURO: Moves all extremities equally; Motor and sensory function intact PSYCH: The patient's mood and manner are appropriate. Grooming and personal hygiene are appropriate. MDM: 24-year-old female with a raised erythematous lesion on the lateral thigh. She was concerned about a fungal infection. She is afebrile. She has tried no medications on this. We will place her on a short course of a steroid and have her follow-up with her primary care provider for further management TRAVEL OUTSIDE OF THE [place] IN LAST 30 DAYS: No - Related Data Allergies/Adverse Reactions: No Known Allergies Allergy (Verified 05/23/20 20:16) Past Medical History - Social History Smoking Status: Unknown if Ever Smoked Family History: CAD, Hyperlipidemia, Hypertension, Malignancy, Thyroid Disfunction. denies: Arthritis, COPD, CVA, DM Pulmonary Medical History: Reports: Hx Bronchitis, Hx Pneumonia Renal/ Medical History: Reports: Hx Ovarian Cysts. Denies: Hx Peritoneal Dialysis GI Medical History: Reports: Hx Gastroesophageal Reflux Disease Psychiatric Medical History: Reports: Hx Anxiety, Hx Depression Past Surgical History: Reports: Hx Adenoidectomy, Hx Cholecystectomy, Hx Myringotomy, Hx Oral Surgery, Hx Tonsillectomy - Immunizations Immunizations up to date: Yes Hx Diphtheria, Pertussis, Tetanus Vaccination: Yes Course - Laboratory Results Critical Laboratory Results Reviewed: No Critical Results - Radiology Results Critical Radiology Results Reviewed: No Critical Results Discharge - Discharge Clinical Impression: Rash and nonspecific skin eruption Condition: Stable Disposition: HOME, SELF-CARE Additional Instructions: Use the Lotrisone cream on the rash as prescribed. Follow-up with your primary care provider for further evaluation and management call for appointment Prescriptions: Clotrimazole/Betamethasone Dip [Lotrisone Cream 15 gm] 1 applic TP BID 5 Days #1 tube Referrals: ROCÍO SIERRA MD [ACTIVE STAFF] - Follow up as needed
== END 2020-07-17 20:50 | disposition home or self-care (01) ==
LOC: ER 20:24
DX: R21 Rash and other nonspecific skin eruption (principal)
CPT/HCPCS: 99283

== ENCOUNTER 2020-08-04 19:05 | Emergency (ER) | payer MEDICAID ==
[2020-08-04] MEDS ORDERED: ACETAMINOPHEN 325 MG TABLET PO ONE (19:34)
--- NOTE | 2020-08-04 19:34 | ER Document Report ---
ED Medical Screen (RME) - General Chief Complaint: Chest Pain Stated Complaint: CHEST PAIN/LEFT SHOULDER/ARM PAIN Time Seen by Provider: 08/04/20 19:30 Primary Care Provider: EUGENIO BALTAZAR FNP [Primary Care Provider] - Follow up as needed Mode of Arrival: Ambulatory Information source: Patient Notes: HPI; 24-year-old female presents to the emergency room with sudden onset of left-sided chest pain that radiates into her left arm that started around [address] Describes it as a sharp stabbing pain. Also states that it hurts to take a deep breath she denies any nausea, vomiting, no diaphoresis. Denies any shortness of breath. She denies any recent illness. She denies any COVID-19 exposure. Did not take any medications for her symptoms. Also states that her left arm and shoulder are painful to move but she denies any trauma or injury to her left shoulder or arm. Patient is right-handed. PE: Alert and oriented x3. Lungs: Scattered rhonchi no wheezes no rales. Heart: Tachycardic without murmurs, rubs, gallops. Tenderness on palpation to the left posterior shoulder as well as the left AC joint. She has painful range of motion with internal and external rotation of left shoulder there is no obvious deformity noted. Book Illustrator strength is equal and adequate bilaterally. Positive left radial pulse. I have greeted and performed a rapid initial assessment of this patient. A comprehensive ED assessment and evaluation of the patient, analysis of test results and completion of the medical decision making process will be conducted by additional ED providers. I have specifically instructed the patient or family members with the patient to immediately return to any nursing staff should anything change in the patient's condition or with their chief complaint. TRAVEL OUTSIDE OF THE [place] IN LAST 30 DAYS: No - Related Data Allergies/Adverse Reactions: No Known Allergies Allergy (Verified 05/23/20 20:16) Past Medical History Pulmonary Medical History: Reports: Hx Bronchitis, Hx Pneumonia Renal/ Medical History: Reports: Hx Ovarian Cysts. Denies: Hx Peritoneal Dialysis GI Medical History: Reports: Hx Gastroesophageal Reflux Disease Psychiatric Medical History: Reports: Hx Anxiety, Hx Depression Past Surgical History: Reports: Hx Adenoidectomy, Hx Cholecystectomy, Hx Myringotomy, Hx Oral Surgery, Hx Tonsillectomy - Immunizations Immunizations up to date: Yes Hx Diphtheria, Pertussis, Tetanus Vaccination: Yes Physical Exam - Vital signs Vitals: Temp Pulse Resp BP Pulse Ox 98.5 F 105 H 16 141/91 H 97 08/04/20 19:14 08/04/20 19:14 08/04/20 19:14 08/04/20 19:14 08/04/20 19:14 Course - Vital Signs Vital signs: Temp Pulse Resp BP Pulse Ox 98.5 F 105 H 16 141/91 H 97 08/04/20 19:14 08/04/20 19:14 08/04/20 19:14 08/04/20 19:14 08/04/20 19:14 Doctor's Discharge - Discharge Referrals: EUGENIO BALTAZAR FNP [Primary Care Provider] - Follow up as needed
[2020-08-04 20:04] LABS: ABSOLUTE EOSINOPHILS # (AUTO) 0.1 10^3/uL (0.0-0.6); ABSOLUTE LYMPHOCYTES (AUTO) 2.5 10^3/uL (0.5-4.7); ABSOLUTE MONOCYTES (AUTO) 0.7 10^3/uL (0.1-1.4); ABSOLUTE NEUT (AUTO) 6.5 10^3/uL (1.7-8.2); BASOPHILS % (AUTO) 0.3 % (0-2); EOSINOPHILS % (AUTO) 1.5 % (0-6); HEMATOCRIT 38.1 % (36.0-47.0); HEMOGLOBIN 13.7 g/dL (12.0-15.5); LYMPHOCYTES % (AUTO) 25.2 % (13-45); MEAN CORPUSCULAR HEMOGLOBIN 30.1 pg (27.0-33.4); MEAN CORPUSCULAR VOLUME 84 fl (80-97); MONOCYTES % (AUTO) 7.4 % (3-13); PLATELET COUNT 443 10^3/uL (150-450); RED BLOOD COUNT 4.56 10^6/uL (3.72-5.28); RED CELL DISTRIBUTION WIDTH 13.5 % (11.5-14.0); SEGMENTED NEUTROPHILS % (AUTO) 65.6 % (42-78); TOTAL CELLS COUNTED % (AUTO) 100 %
[2020-08-04 20:22] LABS: ALBUMIN 4.4 g/dL (3.5-5.0); ALKALINE PHOSPHATASE 133 U/L (38-126); ANION GAP 6 (5-19); ASPARTATE AMINO TRANSFERASE 20 U/L (14-36); BILIRUBIN,DIRECT 0.1 mg/dL (0.0-0.4); BILIRUBIN,TOTAL 0.5 mg/dL (0.2-1.3); BLOOD UREA NITROGEN 14 mg/dL (7-20); CALCIUM 9.5 mg/dL (8.4-10.2); CARBON DIOXIDE 29 mmol/L (22-30); CHLORIDE 103 mmol/L (98-107); GLUCOSE 91 mg/dL (75-110); TOTAL PROTEIN 7.5 g/dL (6.3-8.2)
--- NOTE | 2020-08-04 20:40 | EKG REPORT ---
SEVERITY:- BORDERLINE ECG - SINUS TACHYCARDIA BORDERLINE T ABNORMALITIES, ANTERIOR LEADS : Confirmed by: Julius Concepcion MD 04-Aug-2020 20:39:48
--- NOTE | 2020-08-04 20:48 | RADIOLOGY REPORT (SQ) ---
EXAM DESCRIPTION: CHEST 2 VIEWS CLINICAL HISTORY: 24 years Female, chest pain COMPARISON: Single view of the chest 03/11/2020 FINDINGS: Lungs: Lungs are clear. No pneumonia or edema. No pneumothorax or pleural effusion. Mediastinum: Cardiac and mediastinal silhouette are normal. Bones: Osseous structures are normal. Clips are present in the right upper quadrant consistent with previous cholecystectomy. No free intraperitoneal air. IMPRESSION: No acute process. No significant interval change.
--- NOTE | 2020-08-04 20:48 | RADIOLOGY REPORT (SQ) ---
EXAM DESCRIPTION: XR SHOULDER 2 OR MORE VIEWS COMPLETED DATE/TME: 08/04/2020 20:06 CLINICAL HISTORY: 24 years, Female, pain COMPARISON: None. NUMBER OF VIEWS: 3 TECHNIQUE: 3 views of the left shoulder were obtained LIMITATIONS: None. FINDINGS: There is no bone or joint abnormality about the left shoulder. Left hemithorax is clear as visualized. IMPRESSION: Negative study copyright 2010 [employer]- All Rights Reserved
[2020-08-04] MEDS ORDERED: KETOROLAC TROMETHAMINE 60 MG/2 ML SDV IM ONE (23:08)
--- NOTE | 2020-08-04 23:14 | ER Document Report ---
ED General - General Chief Complaint: Chest Pain Stated Complaint: CHEST PAIN/LEFT SHOULDER/ARM PAIN Time Seen by Provider: 08/04/20 19:30 Primary Care Provider: EUGENIO BALTAZAR FNP [Primary Care Provider] - Follow up as needed Mode of Arrival: Ambulatory Notes: Patient presents to the ER for evaluation of left shoulder pain radiating to the left arm and left upper chest wall that began while she was driving several hours ago. The patient states the pain did seem to be worse when she would lift her left arm as well as take deep breaths. She states her symptoms are much better now. She rates her current pain as a 1 or 2 out of 10. She denies shortness of breath. She denies nausea or vomiting. She denies substernal chest pain. She denies cough or congestion. She denies fever. Nursing notes reviewed and past medical, social, and family histories reviewed and validated. TRAVEL OUTSIDE OF THE [place] IN LAST 30 DAYS: No - Related Data Allergies/Adverse Reactions: No Known Allergies Allergy (Verified 05/23/20 20:16) Past Medical History - General Information source: Patient - Social History Smoking Status: Never Smoker Chew tobacco use (# tins/day): No Frequency of alcohol use: None Drug Abuse: None Lives with: Family Family History: CAD, Hyperlipidemia, Hypertension, Malignancy, Thyroid Disfunction. denies: Arthritis, COPD, CVA, DM Patient has suicidal ideation: No Patient has homicidal ideation: No - Past Medical History Cardiac Medical History: Reports: None Pulmonary Medical History: Reports: Hx Bronchitis, Hx Pneumonia EENT Medical History: Reports: None Neurological Medical History: Reports: None Endocrine Medical History: Reports: None Renal/ Medical History: Reports: Hx Ovarian Cysts Malignancy Medical History: Reports: None GI Medical History: Reports: Hx Gastroesophageal Reflux Disease Musculoskeletal Medical History: Reports None Skin Medical History: Reports None Psychiatric Medical History: Reports: Hx Anxiety, Hx Depression Traumatic Medical History: Reports: None Infectious Medical History: Reports: None Past Surgical History: Reports: Hx Adenoidectomy, Hx Cholecystectomy, Hx Myringotomy, Hx Oral Surgery, Hx Tonsillectomy - Immunizations Immunizations up to date: Yes Hx Diphtheria, Pertussis, Tetanus Vaccination: Yes Review of Systems - Review of Systems Notes: Constitutional: Negative for fever. HENT: Negative for sore throat. Eyes: Negative for visual changes. Cardiovascular: Negative for substernal chest pain. Respiratory: Negative for shortness of breath. Gastrointestinal: Negative for abdominal pain, vomiting or diarrhea. Genitourinary: Negative for dysuria. Musculoskeletal: Positive for left shoulder pain. Skin: Negative for rash. Neurological: Negative for headaches, weakness or numbness. 10 point ROS negative except as marked above and in HPI. Physical Exam - Vital signs Vitals: Temp Pulse Resp BP Pulse Ox 98.5 F 105 H 16 141/91 H 97 08/04/20 19:14 08/04/20 19:14 08/04/20 19:14 08/04/20 19:14 08/04/20 19:14 - Notes Notes: CONSTITUTIONAL: Well appearing. No acute distress. SKIN: Warm, dry, and intact without rash EYES: Extraocular movements are grossly intact, clear conjunctiva HENT: Normocephalic, atraumatic, moist mucus membranes NECK: No obvious swelling, normal range of motion PULMONARY: Normal chest rise and fall. Breath sounds clear and equal bilaterally. No respiratory distress or stridor CARDIOVASCULAR: Regular rate. No murmurs, rubs, gallops. Distal extremities are warm and well perfused. ABDOMINAL: Soft, nontender NEUROLOGIC: Normal speech, moves all extremities. MUSCULOSKELETAL: No gross deformities, atraumatic. There is tenderness palpation over the posterior left shoulder over the trapezius muscle. PSYCHIATRIC: Normal mood and affect Course - Re-evaluation Re-evalutation: 08/04/20 23:13 Rechecked patient who has responded well to treatment in the ER. Discussed with patient: results, diagnosis, treatment plan, and need for follow-up. Return to the emergency department warnings were given. All questions and concerns were addressed. The plan is agreed with and understood. Patient is stable and ready for discharge. - Vital Signs Vital signs: Temp Pulse Resp BP Pulse Ox 98.5 F 105 H 16 141/91 H 98 08/04/20 19:14 08/04/20 19:14 08/04/20 19:14 08/04/20 19:14 08/04/20 22:33 - Laboratory Results Result Diagrams: 08/04/20 19:49 08/04/20 19:49 Laboratory Results Interpreted: 08/04/20 19:49 Alkaline Phosphatase 133 H Critical Laboratory Results Reviewed: No Critical Results - Radiology Results Critical Radiology Results Reviewed: No Critical Results - EKG Interpretation by Me EKG shows normal: Sinus rhythm Rate: Tachycardia Discharge - Discharge Clinical Impression: Trapezius strain Qualifiers: Encounter type: initial encounter Laterality: left Qualified Code(s): S46.812A - Strain of other muscles, fascia and tendons at shoulder and upper arm level, left arm, initial encounter Condition: Stable Disposition: HOME, SELF-CARE Instructions: Muscle Strain ([facility]) Prescriptions: Ketorolac Tromethamine [Toradol 10 mg Tablet] 10 mg PO Q8HP PRN #12 tablet PRN Reason: For Pain Referrals: EUGENIO BALTAZAR FNP [Primary Care Provider] - Follow up as needed
[2020-08-05 00:07] VITALS: BP 120/93
== END 2020-08-05 00:08 | disposition home or self-care (01) ==
LOC: ER 19:05
DX: S29.012A Strain of muscle and tendon of back wall of thorax, initial encounter (principal); X58.XXXA Exposure to other specified factors, initial encounter; M25.512 Pain in left shoulder; M79.602 Pain in left arm; R07.89 Other chest pain; R00.0 Tachycardia, unspecified; Z82.49 Family history of ischemic heart disease and other diseases of the circulatory system
CPT/HCPCS: 93005; 99285; 96372; 36415; 84703; 85025; 80053; 84484; 71046; 73030; 93010; J1885

== ENCOUNTER 2020-08-25 19:28 | Emergency (ER) | payer MEDICAID ==
[2020-08-25 19:53] VITALS: BP 123/91
--- NOTE | 2020-08-25 20:21 | ER Document Report ---
ED Skin Rash/Insect Bite/Abscs - General Chief Complaint: Skin Problem Stated Complaint: INFECTED BUMP Time Seen by Provider: 08/25/20 20:02 Primary Care Provider: EUGENIO BALTAZAR FNP [Primary Care Provider] - Follow up as needed Mode of Arrival: Ambulatory Information source: Patient TRAVEL OUTSIDE OF THE [place] IN LAST 30 DAYS: No - HPI Patient complains to provider of: Tender/swollen area Notes: Patient here with complaints of possible abscess. The patient states that she noticed a red, tender swollen area to her right inner thigh a few days ago. She was seen in urgent care yesterday and was written a prescription for antibiotics. She has taken 1 dose of antibiotics today. She states that today she noticed some pus coming out of the wound and wanted to have it reevaluated. She does complain of some mildly increasing pain. Pain is constant, moderate, worse with palpation and walking, better with rest. Her son does have a history of MRSA. She has no personal history of MRSA. She denies fever. She denies abdominal pain. She denies nausea, vomiting, diarrhea. No chest pain or shortness of breath. No other rashes. She denies any other complaints at this moment. - Related Data Allergies/Adverse Reactions: No Known Allergies Allergy (Verified 05/23/20 20:16) Home Medications: Sulfa Past Medical History - Social History Smoking Status: Never Smoker Frequency of alcohol use: None Drug Abuse: None Family History: CAD, Hyperlipidemia, Hypertension, Malignancy, Thyroid Disfunction. denies: Arthritis, COPD, CVA, DM Pulmonary Medical History: Reports: Hx Bronchitis, Hx Pneumonia Renal/ Medical History: Reports: Hx Ovarian Cysts. Denies: Hx Peritoneal Dialysis GI Medical History: Reports: Hx Gastroesophageal Reflux Disease Psychiatric Medical History: Reports: Hx Anxiety, Hx Depression Past Surgical History: Reports: Hx Adenoidectomy, Hx Cholecystectomy, Hx Myringotomy, Hx Oral Surgery, Hx Tonsillectomy - Immunizations Immunizations up to date: Yes Hx Diphtheria, Pertussis, Tetanus Vaccination: Yes Review of Systems - Review of Systems -: Yes All other systems reviewed and negative Physical Exam - Vital signs Vitals: Temp Pulse Resp BP Pulse Ox 98.9 F 92 14 123/91 H 99 08/25/20 19:51 08/25/20 19:51 08/25/20 19:51 08/25/20 19:51 08/25/20 19:51 - Notes Notes: GENERAL: alert, cooperative, nontoxic, no distress. HEAD: normocephalic, atraumatic EYES: conjunctiva pink without discharge, no external redness or swelling. EARS: no external swelling, no external redness NOSE: atraumatic, no external swelling MOUTH/THROAT: mucous membranes moist and pink NECK: soft, supple, full range of motion, no meningismus. CHEST: no distress, lungs clear and equal throughout. No wheezing, rales, rhonchi. CARDIAC: regular rate and rhythm, no murmur EXTREMITIES: full range of motion of all extremities. No redness, no swelling. NEURO: alert and oriented 3, no focal deficits, full range of motion of all extremities. PYSCH: appropriate mood, affect. Patient is cooperative. SKIN: pink, warm, dry, small indurated abscess to the right inner thigh with small opening and some mild surrounding cellulitis. Mild tenderness to palpation. Compartment soft. Normal neurovascular exam distally. Course - Re-evaluation Re-evalutation: 08/25/20 20:24 Patient is nontoxic-appearing with stable vitals. Here with complaints of right inner thigh abscess. She states she noticed this a few days ago. She was seen at urgent care yesterday and was given a prescription for Bactrim. She got the Bactrim today and has taken 1 dose. She noticed some drainage from the wound and wanted to have it reevaluated. On exam she is noted to have a small open draining abscess to the right inner thigh with some mild surrounding cellulitis. I did perform an I&D to ensure that there was no deeper purulent material. Small mild purulent drainage was obtained. Wound was probed with hemostats and irrigated. Sterile dressing was applied. Patient does have some mild surrounding cellulitis. Her son has MRSA, therefore do believe that the Bactrim should give her good coverage. She is only had 1 dose of antibiotics I do believe she has time to improve over the next 48 hours. At this point believe the patient to be discharged home, continue her Bactrim, apply warm compresses. Follow-up if there is no improvement in the next 2 to 3 days, sooner for significant worsening swelling, redness, fever, pain, any further concerns. The patient's emergency department workup and current diagnosis were explained to the patient and or family. Follow-up instructions were provided. Medications if prescribed were discussed. Instructions for when to return to the emergency department including specific worrisome symptoms were discussed with the patient and/or family. - Vital Signs Vital signs: Temp Pulse Resp BP Pulse Ox 98.9 F 92 14 123/91 H 99 08/25/20 19:51 08/25/20 19:51 08/25/20 19:51 08/25/20 19:51 08/25/20 19:51 - Laboratory Results Critical Laboratory Results Reviewed: No Critical Results - Radiology Results Critical Radiology Results Reviewed: No Critical Results Procedures - Incision and Drainage Right Medial Thigh Type: Simple Anesthetic type: 1% Lidocaine Blade size: 11 I&D procedure: Betadine prep applied, Sterile dressing applied, Other - Probed with hemostats, loculations broken. Incision Method: Incision made by scalpel Amount/type of drainage: Small amount of bloody purulent drainage. Notes: 08/25/20 20:27 Patient tolerated well, no complications. Discharge - Discharge Clinical Impression: Abscess or cellulitis of thigh, Cellulitis and abscess of leg Condition: Stable Disposition: HOME, SELF-CARE Instructions: Abscess ([facility]), MRSA Cellulitis ([facility]), Post Incision and Drainage, Trimethoprim-Sulfa ([facility]) Additional Instructions: Take the antibiotics you were given on your previous visit. Apply warm compresses to the sore area. Take Tylenol or Motrin as needed for pain. Drink plenty of fluids. Follow-up if not better in the next 2 to 3 days, sooner for severe worsening pain, significant spreading redness, high fever, persistent vomiting, or any further concerns. Referrals: EUGENIO BALTAZAR FNP [Primary Care Provider] - Follow up as needed
== END 2020-08-25 20:27 | disposition home or self-care (01) ==
LOC: ER 19:28
DX: L03.115 Cellulitis of right lower limb (principal); L02.415 Cutaneous abscess of right lower limb
CPT/HCPCS: 99283